=== PATIENT | female | born 1980 | race Caucasian/White ===

== ENCOUNTER 2018-07-19 09:29 | Emergency (ER) | payer OTHER ==
[2018-07-19 09:44] VITALS: BP 116/79
[2018-07-19] MEDS ORDERED: carBAMazepine 100 MG Tab.Chew PO STA (10:15)
--- NOTE | 2018-07-19 10:27 | EDM.PDOC ---
ED HPI GENERAL MEDICAL PROBLEM - General Chief Complaint: Eye Problems Stated Complaint: PAIN BEHIND EYES Time Seen by Provider: 07/19/18 09:41 Source of Information: Reports: Patient, RN Notes Reviewed History Limitations: Reports: No Limitations - History of Present Illness INITIAL COMMENTS - FREE TEXT/NARRATIVE: The patient states that she developed severe episodic pain in her right confucianism area Sunday night, 07/14/2018. It is sharp and lancinating in character, lasting only a moment, oftentimes coming in 2 or 3 shocks in quick succession. She has no pain in between episodes. She has not identified any modifiers, other than possibly with opening her mouth. She denies any associated visual changes. No associated nausea. No other neurologic symptoms, such as tingling, numbness, or weakness. She denies having any ear pain or decreased hearing. No recent illness. The patient feels that she may have slight postauricular lymphadenopathy, that she noticed yesterday. The patient also noticed a painful bump to her right scalp. No prior similar symptoms. The patient states that she is . The patient's Lubrication Supervisor is Dr. Katerin Hermosillo. The patient previously saw Dr. Hobbs as a PCP. 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: Endocrine/Metabolic History: Reports: Diabetes, Gestational - Past Surgical History HEENT Surgical History: Reports: Adenoidectomy, Tonsillectomy Female Surgical History: Reports: Section (x 1) Social & Family History - Family History Family Medical History: Noncontributory - Tobacco Use Smoking Status *Q: Never Smoker - Caffeine Use Caffeine Use: Reports: Coffee - Alcohol Use Alcohol Use History: Yes Alcohol Use Frequency: Socially - Recreational Drug Use Recreational Drug Use: No - Living Situation & Occupation Living situation: Reports: , with Spouse, with Family (3 kids) 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 ED EXAM GENERAL W FULL EYE - Physical Exam Exam: See Below Exam Limited By: No Limitations General Appearance: Alert, WD/WN Eye Exam: Bilateral Eye: EOMI, Normal Inspection Pupils: Normal Accommodation Ears: Normal External Exam, Normal Canal, Hearing Grossly Normal, Normal TMs Nose: Normal Inspection, Normal Mucosa Throat/Mouth: Normal Inspection, Normal Lips, Normal Teeth, Normal Gums, Normal Oropharynx, Normal Voice, No Airway Compromise Head: Atraumatic, Other (tender pimple noted to anterior superior right scalp). No: Facial Swelling, Facial Tenderness Neck: Normal Inspection, Supple, Non-Tender, Full Range of Motion, Lymphadenopathy (R) (very slight, single node, superior anterior cervical chain) . No: Lymphadenopathy (L) Respiratory/Chest: No Respiratory Distress, Lungs Clear, Normal Breath Sounds, No Accessory Muscle Use Cardiovascular: Normal Peripheral Pulses, Regular Rate, Rhythm, No Gallop, No JVD, No Murmur, No Rub GI/Abdominal: Normal Bowel Sounds, Soft, Non-Tender, No Organomegaly, No Distention, No Abnormal Bruit, No Mass (Female) Exam: Deferred Rectal (Female) Exam: Deferred Back Exam: Normal Inspection, Full Range of Motion, NT Extremities: Normal Inspection, Normal Range of Motion, No Pedal Edema, Normal Capillary Refill Neurological: Alert, Oriented, CN II-XII Intact, Normal Cognition, No Motor/ Sensory Deficits Psychiatric: Tearful Skin Exam: Warm, Dry, Intact, Normal Color, No Rash Course - Vital Signs Last Recorded V/S: Last Vital Signs Temp 36.9 C 07/19/18 09:37 Pulse 99 07/19/18 09:37 Resp 18 07/19/18 09:37 BP 116/79 07/19/18 09:37 Pulse Ox 95 07/19/18 09:37 - Orders/Labs/Meds Meds: Medications Discontinued Medications Generic Name Dose Route Start Last Admin Trade Name Freq PRN Reason Stop Dose Admin Carbamazepine 200 mg 07/19/18 10:15 07/19/18 10:29 Tegretol PO 07/19/18 10:16 200 mg ONETIME STA Administration - Re-Assessments/Exams Free Text/Narrative Re-Assessment/Exam: 07/19/18 10:24 Clinically, the patient is suffering from right trigeminal neuralgia. No blood work is necessary, however, current guidelines do recommend that the patient undergo a MRI, specifically to rule out a compressive aneurysm. Current guidelines also recommended treatment with carbamazepine, initially at a low dose, such as 100 or 200 mg po BID, then to gradually increase, which reduces the likelihood of significant adverse side effects. The patient asked about whether it would be safe with breast-feeding. I explained that carbamazepine will find its way into breast milk, and into her fetus. While the guidelines do not expressly advise against breast-feeding well on carbamazepine, some complications have been found, which the patient needed to be aware of. Nevertheless, carbamazepine is still recommended, as it is the most studied and felt to be the best neuroleptic. Further, other neuroleptics, which may not be as effective to treat her trigeminal neuralgia, would also likely find their way into breast milk, and are therefore not necessarily better. The patient will be started on carbamazepine 200 mg here in the ED, and I will prescribe a 7 day course. The patient will then follow-up with her PCP, Dr. Hobbs, within a week, not only to have Dr. Hobbs increase the carbamazepine, but also to order an outpatient MRI of the head. Departure - Departure Time of Disposition: 10:25 Disposition: Home, Self-Care 01 Condition: Fair Clinical Impression: Trigeminal neuralgia of right side of face - Discharge Information *PRESCRIPTION DRUG MONITORING PROGRAM REVIEWED*: Not Applicable *COPY OF PRESCRIPTION DRUG MONITORING REPORT IN PATIENT [place]: Not Applicable Prescriptions: carBAMazepine [Carbamazepine] 1 tab PO Q12H #14 tablet Instructions: Trigeminal Neuralgia Referrals: Arianne Koch MD [Primary Care Provider] - Forms: ED Department Discharge Additional Instructions: You were seen in the emergency room for intermittent, sharp, stabbing right confucianism pain since 07/14/2018. Based on your history and physical examination, your pain is MOST CONSISTENT with trigeminal neuralgia. You have been started on the [id number] medicine Tegretol ( carbamazepine). A prescription for carbamazepine has been sent to the [facility], [address] [place] [address]. Take one tablet every 12 hours , starting this evening, 07/19/2018, as prescribed. In addition to carbamazepine, you may also take [id number] ibuprofen, 2-3 tablets (400-600 mg) every 8 hours, with food, as needed for discomfort. Follow-up with your PCP, Dr. Hobbs, early this coming week to: 1. Have her write a prescription to gradually increase the dosage of your carbamazepine 2. Order an outpatient MRI of your head with and without contrast If any other problems, please do not hesitate to return to the ER.
== END 2018-07-19 10:40 | disposition home or self-care (01) ==
LOC: JD.ED 09:29
DX: G50.0 Trigeminal neuralgia (principal); Z88.5 Allergy status to narcotic agent; Z91.030 Bee allergy status; Z79.899 Other long term (current) drug therapy
CPT/HCPCS: 99283; A9270; 99284

== ENCOUNTER 2020-02-19 18:55 | Inpatient (IN) | payer OTHER ==
[2020-02-19] MEDS ORDERED: Lidocaine 1% 50 ML MDV INJECT ONE (19:47)
[2020-02-19] MEDS ORDERED: Nalbuphine 10 MG/ML Syringe IVPUSH PRN (19:47)
[2020-02-19] MEDS ORDERED: Sodium Chloride 0.9% 10 ML Syringe FLUSH PRN (19:47)
[2020-02-19] MEDS: Lactated Ringers 1,000 ML IV SCH ×3 (19:53→21:43)
[2020-02-19] MEDS ORDERED: Oxytocin/Lactated Ringers 10 UNIT/1,000 ML BAG IV SCH (20:00)
--- NOTE | 2020-02-19 20:04 | PCM.LDHP ---
L&D History of Present Illness - General Date of Service: 02/19/20 Admit Problem/Dx: Patient Status Order with Admit Dx/Problem 02/19/20 19:07 Patient Status [ADT] Routine 02/19/20 19:48 Patient Status [ADT] Routine Admission Diagnosis/Problem Admission Diagnosis/Problem Active labor Source of Information: Patient History Limitations: Reports: No Limitations - History of Present Illness Introduction:: Patient is a 39 y/o at 39 6/7 wks who presents in labor. Contractions started at 1300 today. Getting stronger currently. 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: Polycystic Ovaries, : 4 Para: 3 Endocrine/Metabolic History: Reports: Diabetes, Gestational Dermatologic History: Reports: Melanoma - Past Surgical History HEENT Surgical History: Reports: Adenoidectomy, Tonsillectomy Female Surgical History: Reports: Section (x 1) Social & Family History - Family History Family Medical History: Noncontributory - Tobacco Use Smoking Status *Q: Never Smoker - Caffeine Use Caffeine Use: Reports: Coffee - Alcohol Use Alcohol Use History: No - Recreational Drug Use Recreational Drug Use: No - Living Situation & Occupation Living situation: Reports: , with Spouse, with Family (3 kids) 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[employer]) H&P Review of Systems - Review of Systems: Review Of Systems: See Below General: Reports: No Symptoms Pulmonary: Reports: No Symptoms Cardiovascular: Reports: No Symptoms Gastrointestinal: Reports: Abdominal Pain Genitourinary: Reports: No Symptoms Musculoskeletal: Reports: No Symptoms Psychiatric: Reports: No Symptoms Neurological: Reports: No Symptoms L&D Exam - Exam Exam: See Below - OB Specific Contraction Intensity: Moderate to Strong Movement: Active Heart Tones: Present Heart Tones per Min: 140 Heart Rate (FHR) Variability: Moderate (6-25 bmp) Presentation: Vertex - Fermin Score Fermin Score Cervix Position: Anterior Fermin Score Consistency: Soft Fermin Score Effacement: >80% Fermin Score Dilation: > 5 cm Fermin Score Infant's Station: -2 Fermin Score Total: 11 - Exam General: Alert, Oriented, Cooperative Lungs: Clear to Auscultation, Normal Respiratory Effort Cardiovascular: Regular Rate, Regular Rhythm GI/Abdominal Exam: Soft, Non-Tender Genitourinary: Normal external exam Extremities: Normal Inspection Skin: Warm, Dry, Intact - Problem List (1) 39 weeks gestation of SNOMED Code(s): 94461368 ICD Code: Z3A.39 - 39 WEEKS GESTATION OF Status: Acute Current Visit: Yes (2) Normal labor SNOMED Code(s): 46378279 ICD Code: O80 - ENCOUNTER FOR FULL-TERM UNCOMPLICATED DELIVERY; Z37.9 - OUTCOME OF DELIVERY, UNSPECIFIED Status: Acute Current Visit: No Problem List Initiated/Reviewed/Updated: Yes Orders Last 24hrs: Active Orders 24 hr Category Date Time Status Patient Status [ADT] Routine ADT 02/19/20 19:48 Active Activity as Tolerated [RC] PFP Care 02/19/20 19:48 Active Blood Glucose Check, Bedside [RC] Q2HR Care 02/19/20 19:58 Ordered Communication Order [RC] ASDIRECTED Care 02/19/20 19:48 Active Heart Tones [RC] ASDIRECTED Care 02/19/20 19:48 Active Non Stress Test [RC] PER UNIT ROUTINE Care 02/19/20 19:07 Active Notify Provider [RC] PFP Care 02/19/20 19:48 Active Notify Provider [RC] PRN Care 02/19/20 19:48 Active Peripheral IV Care [RC] . DIRECTED Care 02/19/20 19:48 Active Pump Management, Intrathecal [RC] ASDIRECTED Care 02/19/20 19:49 Active Urinary Catheter Assessment [RC] ASDIRECTED Care 02/19/20 19:47 Active Vital Signs [RC] PER UNIT ROUTINE Care 02/19/20 19:07 Active Regular Diet [DIET] Diet 02/19/20 Breakfast Active CBC WITH AUTO DIFF [HEME] Stat Lab 02/19/20 19:47 Ordered RAPID PLASMA REAGIN,RPR [CHEM] Stat Lab 02/19/20 19:47 Ordered TYPE AND SCREEN [BBK] Stat Lab 02/19/20 19:47 Ordered Lactated Ringers [Ringers, Lactated] 1,000 ml Med 02/19/20 20:00 Active IV ASDIRECTED Nalbuphine [Nubain] Med 02/19/20 19:47 Active 10 mg IVPUSH Q2H PRN Oxytocin/Lactated Ringers [Pitocin in LR 10 Units/1,000 Med 02/19/20 20:00 Active ML] 10 unit in 1,000 ml IV .CONTINUOUS Sodium Chloride 0.9% [Saline Flush] Med 02/19/20 19:47 Active 10 ml FLUSH ASDIRECTED PRN Electronic Heart Tones Ext w TOCO [WOMSER] Oth 02/19/20 19:48 Ordered Routine Electronic Heart Tones Internal [WOMSER] Per Unit Oth 02/19/20 19:48 Ordered Routine Peripheral IV Insertion Adult [OM.PC] Routine Oth 02/19/20 19:48 Ordered Resuscitation Status Routine Resus Stat 02/19/20 19:06 Ordered Medication Orders Lactated Ringer's (Ringers, Lactated) 1,000 mls @ 100 mls/hr IV ASDIRECTED DK Last Admin: 02/19/20 19:53 Dose: 999 mls/hr Oxytocin/Lactated Ringer's (Pitocin In Lr 10 Units/1,000 Ml) 10 unit in 1,000 mls @ 500 mls/hr IV .CONTINUOUS DK Nalbuphine HCl (Nubain) 10 mg IVPUSH Q2H PRN PRN Reason: Pain Sodium Chloride (Saline Flush) 10 ml FLUSH ASDIRECTED PRN PRN Reason: Keep Vein Open Assessment/Plan Comment:: * Labs to be done * GBS negative, no need for antibiotics * Blood sugars q 2 hours for GODMA * Pain management per patient preference * Anticipate
[2020-02-19] MEDS ORDERED: fentaNYL 100 MCG/2 ML SDV EPIDUR PRN (20:29)
[2020-02-19] MEDS ORDERED: Ondansetron 4 MG/2 ML SDV IVPUSH PRN (20:29)
[2020-02-19] MEDS ORDERED: ePHEDrine 50 MG/ML SDV IVPUSH PRN (20:29)
[2020-02-19] MEDS ORDERED: Bupivacaine/fentaNYL/NS 100 ML Bag EPIDUR SCH (20:30)
[2020-02-19] MEDS ORDERED: Phenylephrine 1 MG in Sodium Chloride 0.9% 10 ML IV SCH (20:30)
--- NOTE | 2020-02-19 20:32 | PCM.PREANE ---
Preanesthetic Assessment - Anesthesia/Transfusion/Family Hx Anesthesia History: Prior Anesthesia Without Reaction Family History of Anesthesia Reaction: No Transfusion History: No Prior Transfusion(s) Intubation History: Unknown - Review of Systems General: No Symptoms Pulmonary: No Symptoms Cardiovascular: No Symptoms (History of low blood pressure.) Gastrointestinal: No Symptoms (GERD) Neurological: No Symptoms Other: Reports: None, Diabetes (Gestational DM: BS=83) - Physical Assessment NPO Status Date: 02/19/20 NPO Status Time: 19:00 Vital Signs: HR:92 SAT:100% B/P:138/84 RESP:16 Temp:98.3 Height: 1.63 m Weight: 82.663 kg ASA Class: 2 Mental Status: Alert & Oriented x3 Airway Class: Mallampati = 2 Dentition: Reports: Normal Dentition, Caries Thyro-Mental Finger Breadths: 3 Mouth Opening Finger Breadths: 3 ROM/Head Extension: Full Lungs: Clear to Auscultation, Normal Respiratory Effort Cardiovascular: Regular Rate, Regular Rhythm, No Murmurs - Lab Values: Laboratory Last Values WBC 14.20 K/mm3 (3.98-10.04) H 02/19/20 20:00 RBC 4.24 M/mm3 (3.98-5.22) 02/19/20 20:00 Hgb 13.1 gm/dl (11.2-15.7) 02/19/20 20:00 Hct 39.7 % (34.1-44.9) 02/19/20 20:00 MCV 93.6 fl (79.4-94.8) 02/19/20 20:00 MCH 30.9 pg (25.6-32.2) 02/19/20 20:00 MCHC 33.0 g/dl (32.2-35.5) 02/19/20 20:00 RDW Std Deviation 44.3 fL (36.4-46.3) 02/19/20 20:00 Plt Count 223 K/mm3 (182-369) 02/19/20 20:00 MPV 9.8 fl (9.4-12.3) 02/19/20 20:00 Neut % (Auto) 79.7 % (34.0-71.1) H 02/19/20 20:00 Lymph % (Auto) 12.1 % (19.3-51.7) L 02/19/20 20:00 [place] % (Auto) 7.0 % (4.7-12.5) 02/19/20 20:00 Eos % (Auto) 0.6 (0.7-5.8) L 02/19/20 20:00 Baso % (Auto) 0.2 % (0.1-1.2) 02/19/20 20:00 Neut # (Auto) 11.32 K/mm3 (1.56-6.13) H 02/19/20 20:00 Lymph # (Auto) 1.72 K/mm3 (1.18-3.74) 02/19/20 20:00 [place] # (Auto) 0.99 K/mm3 (0.24-0.36) H 02/19/20 20:00 Eos # (Auto) 0.08 K/mm3 (0.04-0.36) 02/19/20 20:00 Baso # (Auto) 0.03 K/mm3 (0.01-0.08) 02/19/20 20:00 POC Glucose 83 mg/dL (70-105) 02/19/20 20:11 Above labs reviewed and noted and within acceptable ranges to proceed with epidural. - Allergies Allergies/Adverse Reactions: Allergies Allergy/AdvReac Type Severity Reaction Status Date / Time hydrocodone Allergy Itching Verified 06/23/16 19:09 bees Allergy Itching Uncoded 06/23/16 19:09 - Anesthesia Plan Pre-Op Medication Ordered: None - Acknowledgements Anesthesia Type Planned: Epidural Pt an Appropriate Candidate for the Planned Anesthesia: Yes Alternatives and Risks of Anesthesia Discussed w Pt/Guardian: Yes Pt/Guardian Understands and Agrees with Anesthesia Plan: Yes PreAnesthesia Questionnaire HEENT History: Reports: Impaired Vision Other HEENT History: wears corrective lenses Gastrointestinal History: Reports: GERD 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: Polycystic Ovaries, Endocrine/Metabolic History: Reports: Diabetes, Gestational Dermatologic History: Reports: Melanoma - Past Surgical History HEENT Surgical History: Reports: Adenoidectomy, Tonsillectomy Female Surgical History: Reports: Section (x 1) - SUBSTANCE USE Smoking Status *Q: Never Smoker Recreational Drug Use History: No - HOME MEDS Home Medications: Home Meds Calcium Carbonate [Calcium] 1 tab PO BID 06/23/16 [History] Vit 90/Iron Fum/Folic [ Formula] 1 tab PO DAILY 06/23/16 [ History] carBAMazepine [Carbamazepine] 1 tab PO Q12H #14 tablet 07/19/18 [Rx] - CURRENT (IN HOUSE) MEDS Current Meds: Current Medications Ephedrine Sulfate (Ephedrine Sulfate) 5 mg IVPUSH ASDIRECTED PRN PRN Reason: Hypotension Fentanyl (Sublimaze) 100 mcg EPIDUR Q3H PRN PRN Reason: Pain Fentanyl/Bupivacaine HCl (Fentanyl/Bupivacaine/Ns 2 Mcg-0.125% 100 Ml) 100 ml EPIDUR ASDIRECTED DK Lactated Ringer's (Ringers, Lactated) 1,000 mls @ 100 mls/hr IV ASDIRECTED DK Last Admin: 02/19/20 20:25 Dose: 999 mls/hr Oxytocin/Lactated Ringer's (Pitocin In Lr 10 Units/1,000 Ml) 10 unit in 1,000 mls @ 500 mls/hr IV .CONTINUOUS DK Phenylephrine HCl 1 mg/ Sodium (Chloride) 10.1 mls @ 1 mls/sec IV TITRATE DK; Protocol Nalbuphine HCl (Nubain) 10 mg IVPUSH Q2H PRN PRN Reason: Pain Ondansetron HCl (Zofran) 4 mg IVPUSH ONETIME PRN PRN Reason: Nausea/Vomiting Sodium Chloride (Saline Flush) 10 ml FLUSH ASDIRECTED PRN PRN Reason: Keep Vein Open Discontinued Medications Lidocaine HCl (Xylocaine 1%) 20 ml INJECT ONETIME ONE Stop: 02/19/20 19:48
--- NOTE | 2020-02-19 22:47 | PCM.DEL ---
L & D Note - General Info Date of Service: 02/19/20 - Delivery Note Labor: Spontaneous Delivery Outcome: Livebirth Delivery Method: Spontaneous Vaginal Delivery-Single Delivery Mode: Spontaneous Presentation: Right Occiput Anterior (MARCELINO) Nuchal Cord: Present (x2), Reduced Anesthesia Type: Epidural Amniotic Fluid Description: Clear Episiotomy Type: None Laceration: 2nd Degree, Perineal Suture type: Vicryl Suture size: 2-0 Placenta: Intact, Spontaneous Cord: 3 Vessels Estimated Blood Loss: 100 Resuscitation Needed: Yes Noti: Bulb Syringe, Stimulated, Warmed, Beulah Used, Warmer Used Delivery Comments (Free Text/Narrative):: Patient found to be complete and began pushing. With maternal pushing effort head delivered from an MARCELINO presentation. Nuchal cord present x2 and reduced. With gentle downward traction the shoulders and body delivered. Infant placed on maternal abdomen. Cord clamped and cut. True knot noted in cord. Cord blood obtained. Placenta allowed time to separate and expelled intact. Inspection of the perineum showed a 2nd degree laceration which was repaired with a 2-0 vicryl in the typical fashion - General Info Date of Service: 02/19/20 - Patient Data Vitals - Most Recent: Last Vital Signs Temp 36.8 C 02/19/20 19:07 Pulse 83 02/19/20 19:07 Resp 16 02/19/20 19:07 BP 122/79 02/19/20 19:07 Pulse Ox 100 02/19/20 19:07 Weight - Most Recent: 82.663 kg - Problem List & Annotations (1) 39 weeks gestation of SNOMED Code(s): 21673933 Code(s): Z3A.39 - 39 WEEKS GESTATION OF Status: Acute Current Visit: Yes (2) Normal labor SNOMED Code(s): 11294188 Code(s): O80 - ENCOUNTER FOR FULL-TERM UNCOMPLICATED DELIVERY; Z37.9 - OUTCOME OF DELIVERY, UNSPECIFIED Status: Acute Current Visit: No (3) Gestational diabetes mellitus (GDM) affecting SNOMED Code(s): 87205205909774 Code(s): O24.419 - GESTATIONAL DIABETES MELLITUS IN , UNSP CONTROL Status: Acute Current Visit: No (4) Vaginal after , delivered, current hospitalization SNOMED Code(s): 845986584 Code(s): O34.21 - MATERNAL CARE FOR SCAR FROM PREVIOUS * DO NOT USE * Status: Acute Current Visit: No - Problem List Review Problem List Initiated/Reviewed/Updated: Yes - My Orders Last 24 Hours: My Active Orders 02/19/20 19:06 Resuscitation Status Routine 02/19/20 19:47 Urinary Catheter Assessment [RC] ASDIRECTED Nalbuphine [Nubain] 10 mg IVPUSH Q2H PRN Sodium Chloride 0.9% [Saline Flush] 10 ml FLUSH ASDIRECTED PRN 02/19/20 19:48 Patient Status [ADT] Routine Activity as Tolerated [RC] PFP Communication Order [RC] ASDIRECTED Heart Tones [RC] ASDIRECTED Notify Provider [RC] PFP Notify Provider [RC] PRN Peripheral IV Care [RC] Q2HR Electronic Heart Tones Ext w TOCO [WOMSER] Routine Electronic Heart Tones Internal [WOMSER] Per Unit Routine Peripheral IV Insertion Adult [OM.PC] Routine 02/19/20 19:49 Pump Management, Intrathecal [RC] ASDIRECTED 02/19/20 19:58 Blood Glucose Check, Bedside [RC] Q2HR 02/19/20 20:00 Lactated Ringers [Ringers, Lactated] 1,000 ml IV ASDIRECTED Oxytocin/Lactated Ringers [Pitocin in LR 10 Units/1,000 ML] 10 unit in 1,000 ml IV .CONTINUOUS 02/19/20 Breakfast Regular Diet [DIET] - Assessment Assessment:: PPD#0 - Plan Plan:: * Routine care * Breast feeding * Blood glucose in AM * Discharge home in 2 days
[2020-02-19] MEDS ORDERED: Witch Hazel Medicated Pads 40/Jar TOP PRN (23:53)
[2020-02-19] MEDS ORDERED: Benzocaine/Menthol 20%-0.5% Spray 56 GM Canister TOP PRN (23:53)
[2020-02-19] MEDS ORDERED: Docusate Sodium 100 MG Cap PO PRN (23:53)
[2020-02-19] MEDS ORDERED: Acetaminophen 325 MG Tab PO PRN (23:53)
[2020-02-20] MEDS: Ibuprofen 600 MG Tab PO PRN ×3 (00:01→20:59)
--- NOTE | 2020-02-20 07:55 | PCM48HPAN ---
Post Anesthesia Note - EVALUATION WITHIN 48HRS OF ANESTHETIC Vital Signs in Normal Range: Yes Patient Participated in Evaluation: Yes Respiratory Function Stable: Yes Airway Patent: Yes Cardiovascular Function Stable: Yes Hydration Status Stable: Yes Pain Control Satisfactory: Yes Nausea and Vomiting Control Satisfactory: Yes Mental Status Recovered: Yes Vital Signs: Last Vital Signs Temp 36.6 C 02/20/20 02:27 Pulse 82 02/20/20 02:27 Resp 14 02/20/20 02:27 BP 104/62 02/20/20 02:27 Pulse Ox 95 02/20/20 02:27 - COMMENTS/OBSERVATIONS Free Text/Narrative:: no anesthesia complications noted
--- NOTE | 2020-02-20 08:01 | PCM.PNPP ---
- General Info Date of Service: 02/20/20 Functional Status: Reports: Pain Controlled, Tolerating Diet, Ambulating, Urinating - Review of Systems General: Reports: No Symptoms Pulmonary: Reports: No Symptoms Cardiovascular: Reports: No Symptoms Gastrointestinal: Reports: No Symptoms Genitourinary: Reports: No Symptoms Musculoskeletal: Reports: No Symptoms Neurological: Reports: No Symptoms - Patient Data Vital Signs - Most Recent: Last Vital Signs Temp 36.6 C 02/20/20 02:27 Pulse 82 02/20/20 02:27 Resp 14 02/20/20 02:27 BP 104/62 02/20/20 02:27 Pulse Ox 95 02/20/20 02:27 Weight - Most Recent: 82.663 kg I&O - Last 24 Hours: Intake & Output 02/19/20 02/20/20 02/20/20 22:59 06:59 14:59 Intake Total 3200 Balance 3200 Lab Results - Last 24 Hours: Laboratory Results - last 24 hr 02/19/20 02/19/20 02/19/20 Range/Units 20:00 20:00 20:00 WBC 14.20 H (3.98-10.04) K/mm3 RBC 4.24 (3.98-5.22) M/mm3 Hgb 13.1 (11.2-15.7) gm/dl Hct 39.7 (34.1-44.9) % MCV 93.6 (79.4-94.8) fl MCH 30.9 (25.6-32.2) pg MCHC 33.0 (32.2-35.5) g/dl RDW Std Deviation 44.3 (36.4-46.3) fL Plt Count 223 (182-369) K/mm3 MPV 9.8 (9.4-12.3) fl Neut % (Auto) 79.7 H (34.0-71.1) % Lymph % (Auto) 12.1 L (19.3-51.7) % [place] % (Auto) 7.0 (4.7-12.5) % Eos % (Auto) 0.6 L (0.7-5.8) Baso % (Auto) 0.2 (0.1-1.2) % Neut # (Auto) 11.32 H (1.56-6.13) K/mm3 Lymph # (Auto) 1.72 (1.18-3.74) K/mm3 [place] # (Auto) 0.99 H (0.24-0.36) K/mm3 Eos # (Auto) 0.08 (0.04-0.36) K/mm3 Baso # (Auto) 0.03 (0.01-0.08) K/mm3 POC Glucose (70-105) mg/dL RPR Non-reactive (NONREACTIVE) Blood Type A POSITIVE Gel Antibody Screen Negative 02/19/20 Range/Units 20:11 WBC (3.98-10.04) K/mm3 RBC (3.98-5.22) M/mm3 Hgb (11.2-15.7) gm/dl Hct (34.1-44.9) % MCV (79.4-94.8) fl MCH (25.6-32.2) pg MCHC (32.2-35.5) g/dl RDW Std Deviation (36.4-46.3) fL Plt Count (182-369) K/mm3 MPV (9.4-12.3) fl Neut % (Auto) (34.0-71.1) % Lymph % (Auto) (19.3-51.7) % [place] % (Auto) (4.7-12.5) % Eos % (Auto) (0.7-5.8) Baso % (Auto) (0.1-1.2) % Neut # (Auto) (1.56-6.13) K/mm3 Lymph # (Auto) (1.18-3.74) K/mm3 [place] # (Auto) (0.24-0.36) K/mm3 Eos # (Auto) (0.04-0.36) K/mm3 Baso # (Auto) (0.01-0.08) K/mm3 POC Glucose 83 (70-105) mg/dL RPR (NONREACTIVE) Blood Type Gel Antibody Screen Med Orders - Current: Current Medications Acetaminophen (Tylenol) 650 mg PO Q4H PRN PRN Reason: mild pain or fever Benzocaine/Menthol (Dermoplast Pain Relief [place]) 0 gm TOP ASDIRECTED PRN PRN Reason: Perineal Comfort Measure Last Admin: 02/20/20 00:01 Dose: 1 can Docusate Sodium (Colace) 100 mg PO BID PRN PRN Reason: Constipation Ibuprofen (Motrin) 600 mg PO Q6H PRN PRN Reason: Mild pain or fever Last Admin: 02/20/20 00:01 Dose: 600 mg Witch Yakov (Tucks) 1 pad TOP ASDIRECTED PRN PRN Reason: Perineal Comfort Measure Last Admin: 02/20/20 00:01 Dose: 1 container Discontinued Medications Ephedrine Sulfate (Ephedrine Sulfate) 5 mg IVPUSH ASDIRECTED PRN PRN Reason: Hypotension Fentanyl (Sublimaze) 100 mcg EPIDUR Q3H PRN PRN Reason: Pain Last Admin: 02/19/20 20:43 Dose: 100 mcg Fentanyl/Bupivacaine HCl (Fentanyl/Bupivacaine/Ns 2 Mcg-0.125% 100 Ml) 100 ml EPIDUR ASDIRECTED DK Last Admin: 02/19/20 20:43 Dose: 100 ml Lactated Ringer's (Ringers, Lactated) 1,000 mls @ 100 mls/hr IV ASDIRECTED DK Last Admin: 02/19/20 21:43 Dose: 100 mls/hr Oxytocin/Lactated Ringer's (Pitocin In Lr 10 Units/1,000 Ml) 10 unit in 1,000 mls @ 500 mls/hr IV .CONTINUOUS DK Last Admin: 02/19/20 22:27 Dose: 500 mls/hr Phenylephrine HCl 1 mg/ Sodium (Chloride) 10.1 mls @ 1 mls/sec IV TITRATE DK; Protocol Lidocaine HCl (Xylocaine 1%) 20 ml INJECT ONETIME ONE Stop: 02/19/20 19:48 Last Admin: 02/20/20 00:50 Dose: Not Given Nalbuphine HCl (Nubain) 10 mg IVPUSH Q2H PRN PRN Reason: Pain Ondansetron HCl (Zofran) 4 mg IVPUSH ONETIME PRN PRN Reason: Nausea/Vomiting Sodium Chloride (Saline Flush) 10 ml FLUSH ASDIRECTED PRN PRN Reason: Keep Vein Open - Infant Interaction Infant Disposition, : [place] in Room with Family Interaction: Holding Infant Infant Feeding: Breastfed Infant; Nursed Well Support Person: - Recovery Exam Fundal Tone: Firm Fundal Level: At Umbilicus Fundal Placement: Midline Lochia Amount: Scant Episiotomy/Laceration: Approximated Bladder Status: Voiding Urinary Elimination: Voided - Exam General: Alert, Oriented, Cooperative GI/Abdominal Exam: Soft, Non-Tender Extremities: Normal Inspection Skin: Warm, Dry, Intact - Problem List & Annotations (1) 39 weeks gestation of SNOMED Code(s): 64073181 Code(s): Z3A.39 - 39 WEEKS GESTATION OF Status: Acute Current Visit: Yes (2) Normal labor SNOMED Code(s): 27969633 Code(s): O80 - ENCOUNTER FOR FULL-TERM UNCOMPLICATED DELIVERY; Z37.9 - OUTCOME OF DELIVERY, UNSPECIFIED Status: Acute Current Visit: No (3) Gestational diabetes mellitus (GDM) affecting SNOMED Code(s): 21567837980332 Code(s): O24.419 - GESTATIONAL DIABETES MELLITUS IN , UNSP CONTROL Status: Acute Current Visit: No (4) Vaginal after , delivered, current hospitalization SNOMED Code(s): 215691266 Code(s): O34.21 - MATERNAL CARE FOR SCAR FROM PREVIOUS * DO NOT USE * Status: Acute Current Visit: No - Problem List Review Problem List Initiated/Reviewed/Updated: Yes - My Orders Last 24 Hours: My Active Orders 02/19/20 19:06 Resuscitation Status Routine 02/19/20 19:47 Urinary Catheter Assessment [RC] ASDIRECTED 02/19/20 19:48 Heart Tones [RC] ASDIRECTED 02/19/20 19:58 Blood Glucose Check, Bedside [RC] Q2HR 02/19/20 23:53 Activity as Tolerated [RC] PER UNIT ROUTINE Vital Signs [RC] 03,09,15,21 Acetaminophen [Tylenol] 650 mg PO Q4H PRN Benzocaine/Menthol [Dermoplast Pain Relief [place]] See Dose Instructions TOP ASDIRECTED PRN Docusate Sodium [Colace] 100 mg PO BID PRN Ibuprofen [Motrin] 600 mg PO Q6H PRN witch Yakov [Tucks] 1 pad TOP ASDIRECTED PRN Assess Lochia [WOMSER] Per Unit Routine Assess Uterine Involution [WOMSER] Per Unit Routine Breast Pump [WOMSER] Per Unit Routine Heat Therapy [OM.PC] PRN Ice Therapy [OM.PC] Per Unit Routine Perineal Care [OM.PC] Per Unit Routine Peripheral IV Discontinue [OM.PC] Routine Sitz Bath [OM.PC] Per Unit Routine 02/19/20 Breakfast Regular Diet [DIET] 02/20/20 07:57 Blood Glucose Check, Bedside [RC] ONETIME 02/20/20 23:53 Heat Therapy [OM.PC] PRN - Assessment Assessment:: PPD#1 - Plan Plan:: * Routine care * Breast feeding * Blood glucose this am, 2hr GTT at 6 weeks * Discharge home tomorrow
--- NOTE | 2020-02-21 07:14 | PCM.DCSUM1 ---
Discharge Summary - Hospital Course Brief History: Admitted for TOLAC, uncomplicated Diagnosis: Stroke: No - Discharge Data Discharge Date: 02/21/20 Discharge Disposition: Home, Self-Care 01 Condition: Good - Referral to Home Health Primary Care Physician: Katerin Hermosillo MD - Patient Instructions Diet: Usual Diet as Tolerated Activity: No Strenuous Activities Activity, Other: pelvic rest Driving: May Drive Today Showering/Bathing: May Shower Notify Provider of: Fever, Increased Pain, Swelling and Redness, Drainage, Nausea and/or Vomiting Other/Special Instructions: Call for heavy/increased bleeding - Discharge Plan *PRESCRIPTION DRUG MONITORING PROGRAM REVIEWED*: No *COPY OF PRESCRIPTION DRUG MONITORING REPORT IN PATIENT [place]: Not Applicable Home Medications: Home Meds Calcium Carbonate [Calcium] 1 tab PO BID 06/23/16 [History] Vit 90/Iron Fum/Folic [ Formula] 1 tab PO DAILY 06/23/16 [ History] Referrals: Katerin Hermosillo MD [Primary Care Provider] - (2 weeks) - Discharge Summary/Plan Comment DC Time >30 min.: No - General Info Date of Service: 02/21/20 Functional Status: Reports: Pain Controlled - Review of Systems General: Reports: No Symptoms HEENT: Reports: No Symptoms Pulmonary: Reports: No Symptoms Cardiovascular: Reports: No Symptoms Gastrointestinal: Reports: No Symptoms Genitourinary: Reports: No Symptoms Musculoskeletal: Reports: No Symptoms Skin: Reports: No Symptoms Neurological: Reports: No Symptoms Psychiatric: Reports: No Symptoms - Patient Data Vitals - Most Recent: Last Vital Signs Temp 36.7 C 02/21/20 04:37 Pulse 80 02/21/20 04:37 Resp 14 02/21/20 04:37 BP 92/57 L 02/21/20 04:37 Pulse Ox 97 02/21/20 04:37 Weight - Most Recent: 82.663 kg Lab Results - Last 24 hrs: Laboratory Results - last 24 hr 02/20/20 Range/Units 08:02 POC Glucose 77 (70-105) mg/dL Med Orders - Current: Current Medications Acetaminophen (Tylenol) 650 mg PO Q4H PRN PRN Reason: mild pain or fever Benzocaine/Menthol (Dermoplast Pain Relief [place]) 0 gm TOP ASDIRECTED PRN PRN Reason: Perineal Comfort Measure Last Admin: 02/20/20 00:01 Dose: 1 can Docusate Sodium (Colace) 100 mg PO BID PRN PRN Reason: Constipation Ibuprofen (Motrin) 600 mg PO Q6H PRN PRN Reason: Mild pain or fever Last Admin: 02/20/20 20:59 Dose: 600 mg Witch [place] (Tucks) 1 pad TOP ASDIRECTED PRN PRN Reason: Perineal Comfort Measure Last Admin: 02/20/20 00:01 Dose: 1 container Discontinued Medications Ephedrine Sulfate (Ephedrine Sulfate) 5 mg IVPUSH ASDIRECTED PRN PRN Reason: Hypotension Fentanyl (Sublimaze) 100 mcg EPIDUR Q3H PRN PRN Reason: Pain Last Admin: 02/19/20 20:43 Dose: 100 mcg Fentanyl/Bupivacaine HCl (Fentanyl/Bupivacaine/Ns 2 Mcg-0.125% 100 Ml) 100 ml EPIDUR ASDIRECTED DK Last Admin: 02/19/20 20:43 Dose: 100 ml Lactated Ringer's (Ringers, Lactated) 1,000 mls @ 100 mls/hr IV ASDIRECTED DK Last Admin: 02/19/20 21:43 Dose: 100 mls/hr Oxytocin/Lactated Ringer's (Pitocin In Lr 10 Units/1,000 Ml) 10 unit in 1,000 mls @ 500 mls/hr IV .CONTINUOUS DK Last Admin: 02/19/20 22:27 Dose: 500 mls/hr Phenylephrine HCl 1 mg/ Sodium (Chloride) 10.1 mls @ 1 mls/sec IV TITRATE DK; Protocol Lidocaine HCl (Xylocaine 1%) 20 ml INJECT ONETIME ONE Stop: 02/19/20 19:48 Last Admin: 02/20/20 00:50 Dose: Not Given Nalbuphine HCl (Nubain) 10 mg IVPUSH Q2H PRN PRN Reason: Pain Ondansetron HCl (Zofran) 4 mg IVPUSH ONETIME PRN PRN Reason: Nausea/Vomiting Sodium Chloride (Saline Flush) 10 ml FLUSH ASDIRECTED PRN PRN Reason: Keep Vein Open - Exam General: Reports: Alert, Oriented HEENT: Reports: Pupils Equal, Pupils Reactive, EOMI, Mucous Membr. Moist/[place] Neck: Reports: Supple Lungs: Reports: Clear to Auscultation, Normal Respiratory Effort Cardiovascular: Reports: Regular Rate, Regular Rhythm GI/Abdominal Exam: Normal Bowel Sounds, Soft, Non-Tender, No Organomegaly, No Distention, No Abnormal Bruit, No Mass, Pelvis Stable Back Exam: Reports: Normal Inspection, Full Range of Motion Extremities: Normal Inspection, Normal Range of Motion, Non-Tender, No Pedal Edema, Normal Capillary Refill Skin: Reports: Warm, Dry, Intact Neurological: Reports: No New Focal Deficit Psy/Mental Status: Reports: Alert, Normal Affect, Normal Mood
[2020-02-21 08:37] VITALS: BP 108/67; PULSE 89
== END 2020-02-21 11:18 | disposition home or self-care (01) | DRG 807 ==
LOC: JD.OBCHECK 18:55 → JD.OB 18:55 → JD.OBCHECK 19:47 → JD.OB 19:48 → OBSVTOIN 22:26
PROVIDERS: ADMIT Obstetrics & Gynecology; ATTEND Obstetrics & Gynecology
PROC: 10E0XZZ Delivery of Products of Conception, External Approach (ICD-10-PCS; principal; 2020-02-19)
PROC: 0KQM0ZZ Repair Perineum Muscle, Open Approach (ICD-10-PCS; 2020-02-19)
PROC: 3E0R3BZ Introduction of Anesthetic Agent into Spinal Canal, Percutaneous Approach (ICD-10-PCS; 2020-02-19)
DX: O24.429 Gestational diabetes mellitus in childbirth, unspecified control (principal); Z37.0 Single live birth; O69.81X0 Labor and delivery complicated by cord around neck, without compression, not applicable or unspecified; Z3A.39 39 weeks gestation of pregnancy; O70.1 Second degree perineal laceration during delivery
CPT/HCPCS: 36415; 59025; 59409; 82962; 85025; 86592; 86850; 86900; 86901; A9270-GY; J2590; J3010; J7120